=== PATIENT | female | born 1985 | race Caucasian/White ===

== ENCOUNTER 2017-05-05 20:21 | Emergency (ER) | payer OTHER ==
--- NOTE | 2017-05-05 21:36 | ED NURSING NOTES ---
Clinical Report - Nurses [facility] [address] [place] [address] 05/05/2017 20:21 Patient: PHYLLIS MCCLENDON TRIAGE Triage time 20:44. Acuity: LEVEL 3. Chief Complaint: ABDOMINAL PAIN and DIARRHEA and FLANK PAIN. --20:50 Marilyn Gallagher R.N. 20:44 05/05/17. BP: 153/107 taken on the right arm, while sitting. HR: 94 (regular and normal rate). RR: 18 (regular and unlabored). O2 saturation: 100% on room air. Temp: 98.7 F (oral). Pain level now: 02/23. --20:50 Marilyn Gallagher R.N. Weight: 70.3 kg stated. Height/Length: 64 inches Per Patient. BMI: 26.6. --20:44 Marilyn Gallagher R.N. Medications Buspar 10mg BID. NexIUM Oral. ZyrTEC Allergy Oral. --20:48 Marilyn Gallagher R.N. Sertraline HCl Oral (Tablet 50 mg) 1 tablet, daily. --20:48 Marilyn Gallagher R.N. Vitamins Oral, daily. --20:48 Marilyn Gallagher R.N. Allergies Wellbutrin. --20:48 Marilyn Gallagher R.N. History Arrived by private vehicle. Historian: patient. Accompanied by family. Primary physician ([facility]ight). ( 3 days right flank pain and diarrhea, not there in the morning but progressively gets worse through the day). 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 PAST MEDICAL HX: Immunizations: up-to-date. Last normal menstrual period- yesterday. Sexual history - sexually active. No contraception. SOCIAL HX: Never smoker. Regular alcohol use; consumes one wine. No drug use. No recent travel. She has had contact with a sick healthcare worker. ABUSE ASSESSMENT: No report of abuse. SELF HARM ASSESSMENT: A self harm assessment was performed. The patient answered "no" to the question "Have you recently felt down, depressed, or hopeless?", "Have you noticed less interest or pleasure in doing things?", "Do you have thoughts of harming or killing yourself?", "Are you here because you tried to hurt yourself?", "Have you ever tried to hurt yourself before today?", "Have you recently had thoughts about harming or killing others?" and "Do you have any dangerous items in your possession?". FALL RISK ASSESSMENT: Fall risk assessment completed. No fall risk identified. NUTRITIONAL RISK ASSESSMENT: The nutritional risk assessment revealed no deficiencies. FUNCTIONAL ASSESSMENT: Functional assessment: no impairments noted. LEARNING NEEDS ASSESSMENT: The learning needs assessment revealed no barriers. SKIN INTEGRITY ASSESSMENT: Skin integrity risk assessment completed. No skin integrity risk identified. --20:50 Marilyn Gallagher R.N. PROBLEMS: Ovarian Cyst. Pelvic Pain. Anxiety Reaction. Abscess. STD - Sexually Transmitted Disease. Diverticulosis. Mitral Valve Prolapse. --20:49 Marilyn Gallagher R.N. ADDITIONAL SURGERIES: Bunionectomy. [place] teeth . --20:49 Marilyn Gallagher R.N. Interventions ID band on patient. --20:50 Marilyn Gallagher R.N. NURSING PROGRESS NOTES 21:26 05/05/2017 Toradol (Ketorolac Tromethamine) IM 60 mg given. Given in the right deltoid. Allergies verified and confirmed 5 rights. --21:26 Sheriff Marx R.N. DISPOSITION / DISCHARGE 21:54 05/05/17. Departure time: 21:54 May 05 2017. Condition at departure: improved. No learning barriers present. Discharge instructions provided and reviewed with the patient. Reviewed medication(s) side effects, precautions, dosing and course information. Prescription(s) given to the patient. Patient verbalized understanding. Written instructions provided in Sami. The patient was discharged by the physician. She was discharged home and accompanied by stuffed casing tier. She left the Emergency Department ambulatory and via private vehicle. Splitter Tender driving. --21:54 Rosmery Penaloza R.N. 21:53 05/05/17. BP: 131/79 (regular adult cuff) taken on the right arm, while sitting. HR: 74. RR: 18. O2 saturation: 100% on room air. Temp: 98.2 F (oral). Pain level now: 12/26. --21:54 Rosmery Penaloza R.N. <<STRICKEN ENTRY-- Condition at departure: stable. No learning barriers present. Discharge instructions provided and reviewed with the patient. Reviewed medication(s) side effects, precautions, dosing and course information. Prescription(s) given to the patient. Patient verbalized understanding. Written instructions provided in Sami. The patient was discharged by the physician. She was discharged home and accompanied by spouse. She left the Emergency Department ambulatory and via private vehicle. Spouse driving. --22:04 Sheriff Marx R.N. --END STRIKE>> Discharged entered already. --22:05 Sheriff Marx R.N. 22:02 05/05/17. BP: 131/79. HR: 74. RR: 20. O2 saturation: 100%. Temp: 98.2 F. --22:04 Sheriff Marx R.N. Locked/Released at 05/05/2017 22:06 by Sheriff Marx R.N.
--- NOTE | 2017-05-05 21:36 | ED ORDER SUMMARY ---
..... Patient: PHYLLIS MCCLENDON OrderSheet [facility] VisitID: [id number] [place] [address] 32y, F Registration Date/Time: 05/05/2017 ORDER SHEET Weight: 70.3 kg (stated) Allergies: Wellbutrin GENERAL ORDERS: MEDICATION ORDERS: Toradol IM 60 mg (NOW) (21:21 05/05/2017 Sonal Rouse) (Ack 21:22 Darek R.N.) (21:26 Darek R.N.) IV FLUIDS: ORDER SHEET NOTES: [Electronically signed by Sheriff Lian Marx (22:06 05/05/2017)] [Electronically signed by Mason Camacho Dr. (00:41 05/06/2017)] [Electronically locked/signed by Sheriff Lian Marx (22:06 05/05/2017)]
--- NOTE | 2017-05-05 21:36 | ED CLINICAL REPORT ---
Clinical Report - Physicians/Mid Levels [facility] [address] [place] [address] 05/05/2017 20:21 Patient: PHYLLIS MCCLENDON Time Seen: 21:09; initial patient contact. Arrived- By private vehicle. Historian- patient. HISTORY OF PRESENT ILLNESS Chief Complaint: FLANK PAIN. At its maximum, severity described as moderate. When seen in the E.D., severity described as moderate. Modifying factors- worsened by movement. Not relieved by anything. It is described as "pain". No radiation. It is described as located in the right flank. This started about 3 days ago and is still present. It was gradual in onset and has been constant. No nausea, loss of appetite or vomiting. She has had mild diarrhea. This has occurred only once. Similar symptoms previously: None. Recent medical care: Not recently seen/assessed. REVIEW OF SYSTEMS No constipation, black stools, difficulty with urination or urination or pain with urination. No urinary frequency or urinary frequency, fever, chills or hematuria. Last bowel movement: today. All systems otherwise negative, except as recorded above. PAST HISTORY Ovarian Cyst. Pelvic Pain. Anxiety Reaction. Abscess. STD - Sexually Transmitted Disease. Diverticulosis. Mitral Valve Prolapse. SURGERIES: Bunionectomy. [place] teeth. SOCIAL HISTORY Never smoker. Occasional alcohol use. No drug use. ADDITIONAL NOTES The nursing notes have been reviewed. PHYSICAL EXAM Vital Signs: 05/05/2017 20:44 BP: 153/107. HR: 94. RR: 18. O2 saturation: 100%. Temp: 98.7 F. Pain level now: 10. Have been reviewed. Hypertensive. Heart rate normal. Respiratory rate normal. Temperature normal. Oxygen saturation normal. Appearance: Alert. Oriented X3. No acute distress. Eyes: Eyes normal inspection. ENT: Pharynx normal. CVS: Normal heart rate and rhythm. Heart sounds normal. Respiratory: No respiratory distress. Breath sounds normal. Chest nontender. Abdomen: Soft. Moderate tenderness (R flank area, no CVA tenderness.). No guarding, rebound tenderness or Trent's sign present. Bowel sounds normal. No organomegaly. No mass. (Painful to lean to the left at the waist in the area that has been painful). Back: Normal inspection. No CVA tenderness. Skin: Normal skin color. No rash. Neuro: Oriented X 3. No motor deficit. PROGRESS AND PROCEDURES Disposition: Discharged home in good and improved condition. Condition: good. CLINICAL IMPRESSION Abdominal muscle strain INSTRUCTIONS Your Current Medications: CONTINUE TAKING THE FOLLOWING MEDICATIONS: Buspar 10mg BID*. NexIUM Oral. Vitamins Oral : daily. Sertraline HCl Oral : Tablet 50 mg, 1 tablet daily. ZyrTEC Allergy Oral. Prescription Medications: Hydrocodone/APAP 5mg / 325mg: take 1 orally every 6 hours as needed for pain. Dispense fifteen (15). No refill. (For moderate to severe pain) Diclofenac 50 mg tablets: take 1 tablet orally every 8 hours as needed for pain or stiffness. Dispense thirty (30). No refill. Follow-up: Follow up with your doctor in about two days. Call for an appointment. Screening today revealed the patient's blood pressure to be in the hypertensive range. The patient should follow up with a primary care provider for blood pressure management. (Electronically signed by Mason Camacho Dr. 05/06/2017 0:41)
--- NOTE | 2017-05-05 21:36 | ED CLINICAL REPORT ---
Clinical Report - Physicians/Mid Levels [facility] [address] [place] [address] 05/05/2017 20:21 Patient: PHYLLIS MCCLENDON Time Seen: 21:09; initial patient contact. Arrived- By private vehicle. Historian- patient. HISTORY OF PRESENT ILLNESS Chief Complaint: FLANK PAIN. At its maximum, severity described as moderate. When seen in the E.D., severity described as moderate. Modifying factors- worsened by movement. Not relieved by anything. It is described as "pain". No radiation. It is described as located in the right flank. This started about 3 days ago and is still present. It was gradual in onset and has been constant. No nausea, loss of appetite or vomiting. She has had mild diarrhea. This has occurred only once. Similar symptoms previously: None. Recent medical care: Not recently seen/assessed. REVIEW OF SYSTEMS No constipation, black stools, difficulty with urination or urination or pain with urination. No urinary frequency or urinary frequency, fever, chills or hematuria. Last bowel movement: today. All systems otherwise negative, except as recorded above. PAST HISTORY Ovarian Cyst. Pelvic Pain. Anxiety Reaction. Abscess. STD - Sexually Transmitted Disease. Diverticulosis. Mitral Valve Prolapse. SURGERIES: Bunionectomy. [place] teeth. SOCIAL HISTORY Never smoker. Occasional alcohol use. No drug use. ADDITIONAL NOTES The nursing notes have been reviewed. PHYSICAL EXAM Vital Signs: 05/05/2017 20:44 BP: 153/107. HR: 94. RR: 18. O2 saturation: 100%. Temp: 98.7 F. Pain level now: 10. Have been reviewed. Hypertensive. Heart rate normal. Respiratory rate normal. Temperature normal. Oxygen saturation normal. Appearance: Alert. Oriented X3. No acute distress. Eyes: Eyes normal inspection. ENT: Pharynx normal. CVS: Normal heart rate and rhythm. Heart sounds normal. Respiratory: No respiratory distress. Breath sounds normal. Chest nontender. Abdomen: Soft. Moderate tenderness (R flank area, no CVA tenderness.). No guarding, rebound tenderness or Trent's sign present. Bowel sounds normal. No organomegaly. No mass. (Painful to lean to the left at the waist in the area that has been painful). Back: Normal inspection. No CVA tenderness. Skin: Normal skin color. No rash. Neuro: Oriented X 3. No motor deficit. PROGRESS AND PROCEDURES Disposition: Discharged home in good and improved condition. Condition: good. CLINICAL IMPRESSION Abdominal muscle strain INSTRUCTIONS Your Current Medications: CONTINUE TAKING THE FOLLOWING MEDICATIONS: Buspar 10mg BID*. NexIUM Oral. Vitamins Oral : daily. Sertraline HCl Oral : Tablet 50 mg, 1 tablet daily. ZyrTEC Allergy Oral. Prescription Medications: Hydrocodone/APAP 5mg / 325mg: take 1 orally every 6 hours as needed for pain. Dispense fifteen (15). No refill. (For moderate to severe pain) Diclofenac 50 mg tablets: take 1 tablet orally every 8 hours as needed for pain or stiffness. Dispense thirty (30). No refill. Follow-up: Follow up with your doctor in about two days. Call for an appointment. Screening today revealed the patient's blood pressure to be in the hypertensive range. The patient should follow up with a primary care provider for blood pressure management. (Electronically signed by Mason Camacho Dr. 05/06/2017 0:41)
--- NOTE | 2017-05-05 21:36 | ED NURSING NOTES ---
Clinical Report - Nurses [facility] [address] [place] [address] 05/05/2017 20:21 Patient: PHYLLIS MCCLENDON TRIAGE Triage time 20:44. Acuity: LEVEL 3. Chief Complaint: ABDOMINAL PAIN and DIARRHEA and FLANK PAIN. --20:50 Marilyn Gallagher R.N. 20:44 05/05/17. BP: 153/107 taken on the right arm, while sitting. HR: 94 (regular and normal rate). RR: 18 (regular and unlabored). O2 saturation: 100% on room air. Temp: 98.7 F (oral). Pain level now: 02/23. --20:50 Marilyn Gallagher R.N. Weight: 70.3 kg stated. Height/Length: 64 inches Per Patient. BMI: 26.6. --20:44 Marilyn Gallagher R.N. Medications Buspar 10mg BID. NexIUM Oral. ZyrTEC Allergy Oral. --20:48 Marilyn Gallagher R.N. Sertraline HCl Oral (Tablet 50 mg) 1 tablet, daily. --20:48 Marilyn Gallagher R.N. Vitamins Oral, daily. --20:48 Marilyn Gallagher R.N. Allergies Wellbutrin. --20:48 Marilyn Gallagher R.N. History Arrived by private vehicle. Historian: patient. Accompanied by family. Primary physician ([facility]ight). ( 3 days right flank pain and diarrhea, not there in the morning but progressively gets worse through the day). 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 PAST MEDICAL HX: Immunizations: up-to-date. Last normal menstrual period- yesterday. Sexual history - sexually active. No contraception. SOCIAL HX: Never smoker. Regular alcohol use; consumes one wine. No drug use. No recent travel. She has had contact with a sick healthcare worker. ABUSE ASSESSMENT: No report of abuse. SELF HARM ASSESSMENT: A self harm assessment was performed. The patient answered "no" to the question "Have you recently felt down, depressed, or hopeless?", "Have you noticed less interest or pleasure in doing things?", "Do you have thoughts of harming or killing yourself?", "Are you here because you tried to hurt yourself?", "Have you ever tried to hurt yourself before today?", "Have you recently had thoughts about harming or killing others?" and "Do you have any dangerous items in your possession?". FALL RISK ASSESSMENT: Fall risk assessment completed. No fall risk identified. NUTRITIONAL RISK ASSESSMENT: The nutritional risk assessment revealed no deficiencies. FUNCTIONAL ASSESSMENT: Functional assessment: no impairments noted. LEARNING NEEDS ASSESSMENT: The learning needs assessment revealed no barriers. SKIN INTEGRITY ASSESSMENT: Skin integrity risk assessment completed. No skin integrity risk identified. --20:50 Marilyn Gallagher R.N. PROBLEMS: Ovarian Cyst. Pelvic Pain. Anxiety Reaction. Abscess. STD - Sexually Transmitted Disease. Diverticulosis. Mitral Valve Prolapse. --20:49 Marilyn Gallagher R.N. ADDITIONAL SURGERIES: Bunionectomy. [place] teeth . --20:49 Marilyn Gallagher R.N. Interventions ID band on patient. --20:50 Marilyn Gallagher R.N. NURSING PROGRESS NOTES 21:26 05/05/2017 Toradol (Ketorolac Tromethamine) IM 60 mg given. Given in the right deltoid. Allergies verified and confirmed 5 rights. --21:26 Sheriff Marx R.N. DISPOSITION / DISCHARGE 21:54 05/05/17. Departure time: 21:54 May 05 2017. Condition at departure: improved. No learning barriers present. Discharge instructions provided and reviewed with the patient. Reviewed medication(s) side effects, precautions, dosing and course information. Prescription(s) given to the patient. Patient verbalized understanding. Written instructions provided in Turkmen. The patient was discharged by the physician. She was discharged home and accompanied by manager provider relations. She left the Emergency Department ambulatory and via private vehicle. Drapery Installer driving. --21:54 Rosmery Penaloza R.N. 21:53 05/05/17. BP: 131/79 (regular adult cuff) taken on the right arm, while sitting. HR: 74. RR: 18. O2 saturation: 100% on room air. Temp: 98.2 F (oral). Pain level now: 12/26. --21:54 Rosmery Penaloza R.N. <<STRICKEN ENTRY-- Condition at departure: stable. No learning barriers present. Discharge instructions provided and reviewed with the patient. Reviewed medication(s) side effects, precautions, dosing and course information. Prescription(s) given to the patient. Patient verbalized understanding. Written instructions provided in Turkmen. The patient was discharged by the physician. She was discharged home and accompanied by spouse. She left the Emergency Department ambulatory and via private vehicle. Spouse driving. --22:04 Sheriff Marx R.N. --END STRIKE>> Discharged entered already. --22:05 Sheriff Marx R.N. 22:02 05/05/17. BP: 131/79. HR: 74. RR: 20. O2 saturation: 100%. Temp: 98.2 F. --22:04 Sheriff Marx R.N. Locked/Released at 05/05/2017 22:06 by Sheriff Marx R.N.
--- NOTE | 2017-05-05 21:36 | ED ORDER SUMMARY ---
..... Patient: PHYLLIS MCCLENDON OrderSheet [facility] VisitID: [id number] [place] [address] 32y, F Registration Date/Time: 05/05/2017 ORDER SHEET Weight: 70.3 kg (stated) Allergies: Wellbutrin GENERAL ORDERS: MEDICATION ORDERS: Toradol IM 60 mg (NOW) (21:21 05/05/2017 Sonal Rouse) (Ack 21:22 Darek R.N.) (21:26 Darek R.N.) IV FLUIDS: ORDER SHEET NOTES: [Electronically signed by Sheriff Lian Marx (22:06 05/05/2017)] [Electronically signed by Mason Camacho Dr. (00:41 05/06/2017)] [Electronically locked/signed by Sheriff Lian Marx (22:06 05/05/2017)]
--- NOTE | 2017-05-06 00:43 | ED MAR SUMMARY ---
..... Medication Administration Record [facility] [address] [place] [address] Patient: PHYLLIS MCCLENDON Visit ID: [id number] 32y, F Weight: 70.3 kg Height/Length: 64 in BMI: 26.6 ALLERGIES: Wellbutrin Given 21:26 05/05/2017 Sheriff Marx R.N. Medication Administered: TORADOL [IM] (KETOROLAC TROMETHAMINE), Dose: 60 mg IM. Medication Ordered: Toradol IM 60 mg (NOW).
--- NOTE | 2017-05-06 00:43 | ED MED RECONCILIATION SUMMARY ---
Patient: PHYLLIS MCCLENDON Medication Reconciliation Report [facility] VisitID: [id number] [address] [place] [address] 32y, F Registration Date/Time: 05/05/2017 Weight: 70.3 kg Height/Length: 64 in. BMI: 26.6 ALLERGIES: Wellbutrin The patient's Home Medications are listed below: CONTINUE TAKING THE FOLLOWING MEDICATIONS: Buspar 10mg BID NexIUM Oral Vitamins Oral, daily Sertraline HCl Oral (50 mg) 1 tablet, daily ZyrTEC Allergy Oral The source(s) of the original Home Medication information: Not obtained. The following Medications were given to the patient in the Emergency Department: Toradol [IM] IM 60 mg, administered: 05/05/2017 9:26:00 PM The following Medications were prescribed to the patient: Hydrocodone/APAP 5mg / 325mg: take 1 orally every 6 hours as needed for pain. Dispense fifteen (15). No refill.(For moderate to severe pain) -- Mason Camacho Dr. Diclofenac 50 mg tablets: take 1 tablet orally every 8 hours as needed for pain or stiffness. Dispense thirty (30). No refill. -- Mason Camacho Dr.
--- NOTE | 2017-05-06 00:43 | ED MAR SUMMARY ---
..... Medication Administration Record [facility] [address] [place] [address] Patient: PHYLLIS MCCLENDON Visit ID: [id number] 32y, F Weight: 70.3 kg Height/Length: 64 in BMI: 26.6 ALLERGIES: Wellbutrin Given 21:26 05/05/2017 Sheriff Marx R.N. Medication Administered: TORADOL [IM] (KETOROLAC TROMETHAMINE), Dose: 60 mg IM. Medication Ordered: Toradol IM 60 mg (NOW).
--- NOTE | 2017-05-06 00:43 | ED DISCHARGE INSTRUCTIONS ---
Patient: PHYLLIS MCCLENDON General Instructions [facility] VisitID: [id number] [place] [address] 32y, F Registration Date/Time: 05/05/2017 Abdominal muscle strain INSTRUCTIONS Your Current Medications: CONTINUE TAKING THE FOLLOWING MEDICATIONS: Buspar 10mg BID*. NexIUM Oral. Vitamins Oral : daily. Sertraline HCl Oral : Tablet 50 mg, 1 tablet daily. ZyrTEC Allergy Oral. Prescription Medications: Hydrocodone/APAP 5mg / 325mg: take 1 orally every 6 hours as needed for pain. Dispense fifteen (15). No refill. (For moderate to severe pain) Diclofenac 50 mg tablets: take 1 tablet orally every 8 hours as needed for pain or stiffness. Dispense thirty (30). No refill. Follow-up: Follow up with your doctor in about two days. Call for an appointment. Screening today revealed the patient's blood pressure to be in the hypertensive range. The patient should follow up with a primary care provider for blood pressure management. ADDITIONAL INFORMATION Muscle Strain, Abdomen A muscle strain is a stretching and tearing of muscle fibers. The abdomen is protected by a thick wall of muscle in the front and sides. These muscles help with twisting and bending forward. Repeated coughing, lifting heavy objects or sudden jerking movements can sometimes cause a muscle strain in the abdomen. This causes pain that is worse when you move. The area may also feel tender or be swollen and bruised. Home Care: Make an ice pack (ice cubes in a plastic bag, wrapped in a towel) and apply over the injured area for 20 minutes every 1-2 hours the first day. You should continue with ice packs 3-4 times a day for the next two days. Continue the use of ice packs for relief of pain and swelling as needed. You may use acetaminophen (Tylenol) or ibuprofen (Motrin, Advil) to control pain, unless another pain medicine was prescribed. [NOTE: If you have liver or kidney disease, a stomach ulcer or GI bleeding, talk with your doctor before using these medicines.] Follow Up with your doctor or this facility if you are not improving within the next five days. Get Prompt Medical Attention if any of the following occur: Pain increases or moves to the right lower abdomen (just below the waistline) Fever of 100.4 F (38 C) or higher, or as directed by your healthcare provider Vomiting Severe abdominal pain that spreads to the back or toward the groin Dizziness, weakness or fainting Blood in the urine Unexpected vaginal bleeding (for women) Hydrocodone Bitartrate, Acetaminophen Oral tablet What is this medicine? ACETAMINOPHEN; HYDROCODONE (a set a ADAMARIS murtaza fen; bekah droe KOE done) is a pain reliever. It is used to treat mild to moderate pain. How should I use this medicine? Take this medicine by mouth. Swallow it with a full glass of water. Follow the directions on the prescription label. If the medicine upsets your stomach, take the medicine with food or milk. Do not take more than you are told to take. Talk to your parking lot laborer regarding the use of this medicine in children. This medicine is not approved for use in children. What side effects may I notice from receiving this medicine? Side effects that you should report to your doctor or health home health care provider as soon as possible: allergic reactions like skin rash, itching or hives, swelling of the face, lips, or tongue breathing problems confusion feeling faint or lightheaded, falls stomach pain yellowing of the eyes or skin Side effects that usually do not require medical attention (report to your doctor or health home health care provider if they continue or are bothersome): nausea, vomiting stomach upset What may interact with this medicine? alcohol antihistamines isoniazid medicines for depression, anxiety, or psychotic disturbances medicines for sleep muscle relaxants naltrexone narcotic medicines (opiates) for pain phenobarbital ritonavir tramadol What if I miss a dose? If you miss a dose, take it as soon as you can. If it is almost time for your next dose, take only that dose. Do not take double or extra doses. Where should I keep my medicine? Keep out of the reach of children. This medicine can be abused. Keep your medicine in a safe place to protect it from theft. Do not share this medicine with anyone. Selling or giving away this medicine is dangerous and against the law. Store at room temperature between 15 and 30 degrees C (59 and 86 degrees F). Protect from light. Keep container tightly closed. Throw away any unused medicine after the expiration date. Discard unused medicine and used packaging carefully. Pets and children can be harmed if they find used or lost packages. What should I tell my health care provider before I take this medicine? They need to know if you have any of these conditions: brain tumor Crohn's disease, inflammatory bowel disease, or ulcerative colitis drink more than 3 alcohol-containing drinks per day drug abuse or addiction head injury heart or circulation problems kidney disease or problems going to the bathroom liver disease lung disease, asthma, or breathing problems an unusual or allergic reaction to acetaminophen, hydrocodone, other opioid analgesics, other medicines, foods, dyes, or preservatives or trying to get breast-feeding What should I watch for while using this medicine? Tell your doctor or health home health care provider if your pain does not go away, if it gets worse, or if you have new or a different type of pain. You may develop tolerance to the medicine. Tolerance means that you will need a higher dose of the medicine for pain relief. Tolerance is normal and is expected if you take the medicine for a long time. Do not suddenly stop taking your medicine because you may develop a severe reaction. Your body becomes used to the medicine. This does NOT mean you are addicted. Addiction is a behavior related to getting and using a drug for a non-medical reason. If you have pain, you have a medical reason to take pain medicine. Your doctor will tell you how much medicine to take. If your doctor wants you to stop the medicine, the dose will be slowly lowered over time to avoid any side effects. You may get drowsy or dizzy when you first start taking the medicine or change doses. Do not drive, use machinery, or do anything that may be dangerous until you know how the medicine affects you. Stand or sit up slowly. There are different types of narcotic medicines (opiates) for pain. If you take more than one type at the same time, you may have more side effects. Give your health care provider a list of all medicines you use. Your doctor will tell you how much medicine to take. Do not take more medicine than directed. Call emergency for help if you have problems breathing. The medicine will cause constipation. Try to have a bowel movement at least every 2 to 3 days. If you do not have a bowel movement for 3 days, call your doctor or health home health care provider. Too much acetaminophen can be very dangerous. Do not take Tylenol (acetaminophen) or medicines that contain acetaminophen with this medicine. Many non-prescription medicines contain acetaminophen. Always read the labels carefully. You have been given the following additional information: Muscle Strain, Abdomen Hydrocodone Bitartrate, Acetaminophen Oral tablet (Electronically signed by Mason Camacho Dr. 05/06/2017 0:41)
--- NOTE | 2017-05-06 00:43 | ED MED RECONCILIATION SUMMARY ---
Patient: PHYLLIS MCCLENDON Medication Reconciliation Report [facility] VisitID: [id number] [address] [place] [address] 32y, F Registration Date/Time: 05/05/2017 Weight: 70.3 kg Height/Length: 64 in. BMI: 26.6 ALLERGIES: Wellbutrin The patient's Home Medications are listed below: CONTINUE TAKING THE FOLLOWING MEDICATIONS: Buspar 10mg BID NexIUM Oral Vitamins Oral, daily Sertraline HCl Oral (50 mg) 1 tablet, daily ZyrTEC Allergy Oral The source(s) of the original Home Medication information: Not obtained. The following Medications were given to the patient in the Emergency Department: Toradol [IM] IM 60 mg, administered: 05/05/2017 9:26:00 PM The following Medications were prescribed to the patient: Hydrocodone/APAP 5mg / 325mg: take 1 orally every 6 hours as needed for pain. Dispense fifteen (15). No refill.(For moderate to severe pain) -- Mason Camacho Dr. Diclofenac 50 mg tablets: take 1 tablet orally every 8 hours as needed for pain or stiffness. Dispense thirty (30). No refill. -- Mason Camacho Dr.
--- NOTE | 2017-05-06 00:43 | ED DISCHARGE INSTRUCTIONS ---
Patient: PHYLLIS MCCLENDON General Instructions [facility] VisitID: [id number] [place] [address] 32y, F Registration Date/Time: 05/05/2017 Abdominal muscle strain INSTRUCTIONS Your Current Medications: CONTINUE TAKING THE FOLLOWING MEDICATIONS: Buspar 10mg BID*. NexIUM Oral. Vitamins Oral : daily. Sertraline HCl Oral : Tablet 50 mg, 1 tablet daily. ZyrTEC Allergy Oral. Prescription Medications: Hydrocodone/APAP 5mg / 325mg: take 1 orally every 6 hours as needed for pain. Dispense fifteen (15). No refill. (For moderate to severe pain) Diclofenac 50 mg tablets: take 1 tablet orally every 8 hours as needed for pain or stiffness. Dispense thirty (30). No refill. Follow-up: Follow up with your doctor in about two days. Call for an appointment. Screening today revealed the patient's blood pressure to be in the hypertensive range. The patient should follow up with a primary care provider for blood pressure management. ADDITIONAL INFORMATION Muscle Strain, Abdomen A muscle strain is a stretching and tearing of muscle fibers. The abdomen is protected by a thick wall of muscle in the front and sides. These muscles help with twisting and bending forward. Repeated coughing, lifting heavy objects or sudden jerking movements can sometimes cause a muscle strain in the abdomen. This causes pain that is worse when you move. The area may also feel tender or be swollen and bruised. Home Care: Make an ice pack (ice cubes in a plastic bag, wrapped in a towel) and apply over the injured area for 20 minutes every 1-2 hours the first day. You should continue with ice packs 3-4 times a day for the next two days. Continue the use of ice packs for relief of pain and swelling as needed. You may use acetaminophen (Tylenol) or ibuprofen (Motrin, Advil) to control pain, unless another pain medicine was prescribed. [NOTE: If you have liver or kidney disease, a stomach ulcer or GI bleeding, talk with your doctor before using these medicines.] Follow Up with your doctor or this facility if you are not improving within the next five days. Get Prompt Medical Attention if any of the following occur: Pain increases or moves to the right lower abdomen (just below the waistline) Fever of 100.4 F (38 C) or higher, or as directed by your healthcare provider Vomiting Severe abdominal pain that spreads to the back or toward the groin Dizziness, weakness or fainting Blood in the urine Unexpected vaginal bleeding (for women) Hydrocodone Bitartrate, Acetaminophen Oral tablet What is this medicine? ACETAMINOPHEN; HYDROCODONE (a set a ADAMARIS murtaza fen; bekah droe KOE done) is a pain reliever. It is used to treat mild to moderate pain. How should I use this medicine? Take this medicine by mouth. Swallow it with a full glass of water. Follow the directions on the prescription label. If the medicine upsets your stomach, take the medicine with food or milk. Do not take more than you are told to take. Talk to your staff veterinarian regarding the use of this medicine in children. This medicine is not approved for use in children. What side effects may I notice from receiving this medicine? Side effects that you should report to your doctor or health livestock caretaker as soon as possible: allergic reactions like skin rash, itching or hives, swelling of the face, lips, or tongue breathing problems confusion feeling faint or lightheaded, falls stomach pain yellowing of the eyes or skin Side effects that usually do not require medical attention (report to your doctor or health livestock caretaker if they continue or are bothersome): nausea, vomiting stomach upset What may interact with this medicine? alcohol antihistamines isoniazid medicines for depression, anxiety, or psychotic disturbances medicines for sleep muscle relaxants naltrexone narcotic medicines (opiates) for pain phenobarbital ritonavir tramadol What if I miss a dose? If you miss a dose, take it as soon as you can. If it is almost time for your next dose, take only that dose. Do not take double or extra doses. Where should I keep my medicine? Keep out of the reach of children. This medicine can be abused. Keep your medicine in a safe place to protect it from theft. Do not share this medicine with anyone. Selling or giving away this medicine is dangerous and against the law. Store at room temperature between 15 and 30 degrees C (59 and 86 degrees F). Protect from light. Keep container tightly closed. Throw away any unused medicine after the expiration date. Discard unused medicine and used packaging carefully. Pets and children can be harmed if they find used or lost packages. What should I tell my health care provider before I take this medicine? They need to know if you have any of these conditions: brain tumor Crohn's disease, inflammatory bowel disease, or ulcerative colitis drink more than 3 alcohol-containing drinks per day drug abuse or addiction head injury heart or circulation problems kidney disease or problems going to the bathroom liver disease lung disease, asthma, or breathing problems an unusual or allergic reaction to acetaminophen, hydrocodone, other opioid analgesics, other medicines, foods, dyes, or preservatives or trying to get breast-feeding What should I watch for while using this medicine? Tell your doctor or health livestock caretaker if your pain does not go away, if it gets worse, or if you have new or a different type of pain. You may develop tolerance to the medicine. Tolerance means that you will need a higher dose of the medicine for pain relief. Tolerance is normal and is expected if you take the medicine for a long time. Do not suddenly stop taking your medicine because you may develop a severe reaction. Your body becomes used to the medicine. This does NOT mean you are addicted. Addiction is a behavior related to getting and using a drug for a non-medical reason. If you have pain, you have a medical reason to take pain medicine. Your doctor will tell you how much medicine to take. If your doctor wants you to stop the medicine, the dose will be slowly lowered over time to avoid any side effects. You may get drowsy or dizzy when you first start taking the medicine or change doses. Do not drive, use machinery, or do anything that may be dangerous until you know how the medicine affects you. Stand or sit up slowly. There are different types of narcotic medicines (opiates) for pain. If you take more than one type at the same time, you may have more side effects. Give your health care provider a list of all medicines you use. Your doctor will tell you how much medicine to take. Do not take more medicine than directed. Call emergency for help if you have problems breathing. The medicine will cause constipation. Try to have a bowel movement at least every 2 to 3 days. If you do not have a bowel movement for 3 days, call your doctor or health livestock caretaker. Too much acetaminophen can be very dangerous. Do not take Tylenol (acetaminophen) or medicines that contain acetaminophen with this medicine. Many non-prescription medicines contain acetaminophen. Always read the labels carefully. You have been given the following additional information: Muscle Strain, Abdomen Hydrocodone Bitartrate, Acetaminophen Oral tablet (Electronically signed by Mason Camacho Dr. 05/06/2017 0:41)
== END 2017-05-05 21:54 | disposition home or self-care (01) ==
LOC: ED SRH 20:21
DX: S39.011A Strain of muscle, fascia and tendon of abdomen, initial encounter (principal); X58.XXXA Exposure to other specified factors, initial encounter; Y93.9 Activity, unspecified; Y99.9 Unspecified external cause status; Y92.9 Unspecified place or not applicable; Z79.899 Other long term (current) drug therapy; Z88.8 Allergy status to other drugs, medicaments and biological substances